=== PATIENT | male | born 1985 | race Two or more races ===

== ENCOUNTER 2022-04-25 09:36 | Emergency (ER) | payer OTHER ==
[~2022-04-25] VITALS: Ht 170.2 cm; Wt 77.3 kg
[2022-04-25 09:53] VITALS: BP 139/82
[2022-04-25] MEDS ORDERED: proparacaine 0.5% ophthalmic drops 15ml EACHEYE ONE (10:00)
[2022-04-25] MEDS ORDERED: TOBR5DRO2 LEFTEYE (10:40)
== END 2022-04-25 11:14 | disposition home or self-care (01) ==
LOC: ER 09:38
DX: S05.01XA Injury of conjunctiva and corneal abrasion without foreign body, right eye, initial encounter (principal); H57.12 Ocular pain, left eye; Z79.2 Long term (current) use of antibiotics; X58.XXXA Exposure to other specified factors, initial encounter; Y93.89 Activity, other specified; Y92.89 Other specified places as the place of occurrence of the external cause; Y99.8 Other external cause status
CPT/HCPCS: 99283